=== PATIENT | female | born 1995 | race Caucasian/White ===

== ENCOUNTER 2022-04-29 10:09 | Day surgery (SDC) | payer OTHER | END 2022-04-29 20:05 | disposition home or self-care (01) | LOC: CIR.AMB 10:09 | PROVIDERS: ATTEND Obstetrics & Gynecology | DX: N84.0 Polyp of corpus uteri (principal); N84.1 Polyp of cervix uteri; N76.0 Acute vaginitis; N94.6 Dysmenorrhea, unspecified; D64.9 Anemia, unspecified ==

== ENCOUNTER 2022-10-04 07:00 | Inpatient (IN) | payer OTHER ==
[~2022-10-04] VITALS: Ht 157.5 cm; Wt 102.1 kg
[2022-10-08] MEDS ORDERED: NEURONTIN600 MG PO (07:05)
[2022-10-08] MEDS ORDERED: IBUPROFEN800 MG PO (07:05)
== END 2022-10-08 09:11 | disposition home or self-care (01) | DRG 743 ==
LOC: O/R 10-07 05:23 → OB/GYN 10-07 07:00
PROVIDERS: ADMIT Obstetrics & Gynecology; ATTEND Obstetrics & Gynecology
PROC: 0UB10ZZ Excision of Left Ovary, Open Approach (ICD-10-PCS; principal; 2022-10-07 07:00)
DX: D27.1 Benign neoplasm of left ovary (principal); Z20.822 Contact with and (suspected) exposure to COVID-19